=== PATIENT | male | born 1965 | race Caucasian/White ===

== ENCOUNTER 2021-05-24 09:49 | Day surgery (SDC) | payer SELFPAY ==
[2021-05-24] MEDS ORDERED: Depo-Medrol 40 MG/ML IM ONE (09:50)
[2021-05-24] MEDS ORDERED: LIDOCAINE HCL 2% 100 MG/5 ML IJ ONE (09:50)
[2021-05-24] MEDS ORDERED: DIPRIVAN 200 MG/20 ML IV ONE (10:39)
[2021-05-24] MEDS ORDERED: Ketamine HCl 50 MG/ML ONE (11:02)
[2021-05-24] MEDS ORDERED: Lactated Ringers 1,000 ML IV ONE (15:53)
--- NOTE | 2021-05-25 11:53 | XRAY ---
33 seconds fluoroscopy time in surgery for T7-T10 MBB.
--- NOTE | 2021-05-27 23:54 | XRAY ---
Indication: Bilateral T7-T11 MBB. Intraoperative fluoroscopy was provided for 27 seconds. A single digital spot image submitted for interpretation demonstrate posterior spinal needle tips projected over the expected course of the left and right T7-T11 nerve roots. Correlate with intraoperative findings/report.
== END 2021-05-24 11:26 | disposition home or self-care (01) ==
LOC: SDC-PAIN 09:49
PROVIDERS: ATTEND Psychiatry & Neurology Pain Medicine
DX: M47.814 Spondylosis without myelopathy or radiculopathy, thoracic region (principal); Z79.899 Other long term (current) drug therapy
CPT/HCPCS: 64490; 64491; 64492; 72072; 77002; J1030; J2704

== ENCOUNTER 2021-09-06 12:36 | Day surgery (SDC) | payer SELFPAY ==
[2021-09-06] MEDS ORDERED: Depo-Medrol 40 MG/ML IM ONE (12:37)
[2021-09-06] MEDS ORDERED: BUPIVACAINE 0.5% VIAL IJ ONE (12:37)
[2021-09-06] MEDS ORDERED: DIPRIVAN 200 MG/20 ML IV ONE (14:13)
[2021-09-06] MEDS ORDERED: Lactated Ringers 1,000 ML IV ONE (14:37)
--- NOTE | 2021-09-06 15:18 | XRAY ---
23 seconds fluoroscopy time in surgery for bilateral T8-T11 MBB.
--- NOTE | 2021-09-06 15:23 | XRAY ---
Indication: Bilateral T8-T11 MBB. Intraoperative fluoroscopy provided for 23 seconds. Single digital spot image submitted for interpretation demonstrates posterior needle tips projecting over the expected left and right T8-T11 nerve roots. Correlate with intraoperative findings/report.
== END 2021-09-06 14:40 | disposition home or self-care (01) ==
LOC: SDC-PAIN 12:36
PROVIDERS: ATTEND Psychiatry & Neurology Pain Medicine
DX: M47.814 Spondylosis without myelopathy or radiculopathy, thoracic region (principal)
CPT/HCPCS: 64490; 64491; 64492; 72072; 77002; J1030; J2704

== ENCOUNTER 2022-01-24 13:07 | Day surgery (SDC) | payer SELFPAY ==
[2022-01-24] MEDS ORDERED: DIPRIVAN 200 MG/20 ML IV ONE (15:55)
[2022-01-24] MEDS ORDERED: Lactated Ringers 1,000 ML IV ONE (16:24)
--- NOTE | 2022-01-24 18:32 | XRAY ---
Indication: Right T8-T11 RFA. Intraoperative fluoroscopy provided for 29 seconds. Single digital spot image submitted for interpretation demonstrates posterior needle tips projecting over the expected right T8-T11 nerve roots. Correlate with intraoperative findings/report.
== END 2022-01-24 16:30 | disposition home or self-care (01) ==
LOC: SDC-PAIN 13:07
PROVIDERS: ATTEND Psychiatry & Neurology Pain Medicine
DX: M47.814 Spondylosis without myelopathy or radiculopathy, thoracic region (principal); Z79.899 Other long term (current) drug therapy
CPT/HCPCS: 01939; 72072; 77002; J2704

== ENCOUNTER 2022-02-08 14:40 | Day surgery (SDC) | payer OTHER ==
[2022-02-08] MEDS ORDERED: BUPIVACAINE 0.5% VIAL IJ ONE (14:41)
[2022-02-08] MEDS ORDERED: Depo-Medrol 40 MG/ML IM ONE (14:41)
[2022-02-08] MEDS ORDERED: Xylocaine 1% Vial 30 ML PF IJ ONE (14:41)
[2022-02-08] MEDS ORDERED: Lactated Ringers 1,000 ML IV ONE (16:12)
[2022-02-08] MEDS ORDERED: DIPRIVAN 200 MG/20 ML IV ONE ×2 (16:38→16:50)
--- NOTE | 2022-02-08 19:21 | XRAY ---
Indication: Left T8-T11 RFA. Intraoperative fluoroscopy provided for 25 seconds. 2 digital spot images submitted for interpretation demonstrates posterior needle tips projecting over the expected left T8-T11 nerve roots. Correlate with intraoperative findings/report.
--- NOTE | 2022-02-09 10:07 | XRAY ---
25 seconds fluoroscopy time in surgery for left T8-T11 RFA.
== END 2022-02-08 17:13 | disposition home or self-care (01) ==
LOC: SDC-PAIN 14:40
PROVIDERS: ATTEND Psychiatry & Neurology Pain Medicine
DX: M47.814 Spondylosis without myelopathy or radiculopathy, thoracic region (principal); Z79.899 Other long term (current) drug therapy
CPT/HCPCS: 01939; 64633; 64634; 72020; 77002; J1030; J2001; J2704